=== PATIENT | male | born 1940 | race Caucasian/White ===

== ENCOUNTER 2016-06-20 16:32 | Inpatient (IN) | payer OTHER ==
[~2016-06-20] VITALS: Ht 172.7 cm; Wt 96.5 kg
[~2016-06-20 16:32] MED LIST: ASPIR 8181 M1 PO; BENADRYL25 MG PO; CENTRUM SILVER1 EAC3 PO; COREG6.25 M1 PO; DOK PLUS TABLE1 EACH PO; IRON325 M1 PO; LASIX40 MG PO; NORVASC10 MG PO; OMEGA 3-6-9 CO1 EACH PO; OXYCODONE HCL5 MG PO; PRAVACHOL80 MG PO; VITAMIN B-6100 MG PO; XARELTO10 MG PO; ZYLOPRIM300 MG PO
[2016-06-20 17:19] LABS: HEMATOCRIT 37.3 % (38.0-50.0); MCH 33.7 PG (29.0-34.0); MCHC 33.5 G/DL (30.0-36.0); MCV 100.5 FL (86-99); MEAN PLAT.VOLUME 9.7 uM^3 (9.0-12.4); PLATELET COUNT 162 K/uL (156-360); RBC DIS.WIDTH-CV 13.5 % (11.8-14.6); RED BLOOD COUNT 3.71 M/uL (4.00-5.50); WHITE BLOOD COUNT 7.5 K/uL (4.1-10.2)
[2016-06-20 17:24] LABS: CHLORIDE 94 mEq/L (99-109); POTASSIUM 4.5 mEq/L (3.7-5.4); SODIUM 135 mEq/L (136-147)
[2016-06-20 17:25] LABS: GLUCOSE 102 mg/dL (70-99)
[2016-06-20 17:27] LABS: ANION GAP 16 MEQ/L (2-14)
[2016-06-20 17:29] LABS: GFR ESTIMATE (CALCULATED) 23 mL/min/
[2016-06-20 17:30] LABS: UREA NITROGEN (BUN) 40 mg/dL (9-23)
[2016-06-20] MEDS ORDERED: ZYLOPRIM100 MG PO (18:33)
[2016-06-20] MEDS ORDERED: COLCRYS0.6 MG PO (18:34)
[2016-06-20] MEDS ORDERED: CALCITRIOL0.25 MCG PO (18:35)
[2016-06-20] MEDS ORDERED: LEVOFLOXACIN750 MG PO (18:36)
[2016-06-20] MEDS ORDERED: NORVASC5 MG PO (18:37)
[2016-06-20 19:14] LABS: EOSINOPHIL (%) 0.1 % (0-5); HEMATOLOGY COMMENT 1 SMEAR COMPATIBLE; IMMATURE GRANULOCYTE (%) 1.6 % (0.0-0.7); IMMATURE GRANULOCYTE COUNT 1.2 K/uL; LYMPHOCYTE COUNT 0.9 K/uL (1.0-2.8); MONOCYTE (%) 3.2 % (3-12); MONOCYTE COUNT 0.2 K/uL (0-0.8); NEUTROPHIL (%) 82.5 % (45-76); NEUTROPHIL COUNT 6.2 K/uL (1.8-6.4); USER ID SS
[2016-06-20 19:34] LABS: BASE EXCESS -2.6 mEq/L (-3 to +3); BICARBONATE 23.2 mEq/L (22-26); METHEMOGLOBIN 1.2 % (0-1.5); PCO2 43 mm Hg (35-45); PO2 265 mm Hg (80-100); pH 7.34 (7.35-7.45)
[2016-06-20 19:35] LABS: COMMENTS - BLOOD GASES C+; DEVICE PB840; FI02 100 %; MODE SPON; PEEP 5 CM/H20; PRES. SUPPORT 15 CM/H2O; SITE LR; TOTAL RESP RATE 45 resp/min
[2016-06-20 22:35] VITALS: BP 156/87
[2016-06-20 22:42] VITALS: BP 156/87
[2016-06-20 23:00] VITALS: BP 109/71
[2016-06-20 23:58] LABS: METH RESISTANT S AUREUS PCR NEGATIVE (NEGATIVE); PROBE CHECK PASS; SPECIMEN PROCESSING CONTROL PASS
[2016-06-21] VITALS (21 sets, daily range): BP systolic 94–141; BP diastolic 52–97
[2016-06-21 01:09] LABS: INFLUENZA A VIRAL ANTIGEN NEGATIVE; INFLUENZA B VIRAL ANTIGEN NEGATIVE
[2016-06-21 05:55] LABS: ANION GAP 15 MEQ/L (2-14); CHLORIDE 97 MEQ/L (99-109); GFR ESTIMATE (CALCULATED) 28 mL/min/; GLUCOSE 125 mg/dL (70-99); MAGNESIUM 1.2 mg/dl (1.3-2.7); POTASSIUM 4.3 MEQ/L (3.7-5.4); SAMPLE HEMOLYSIS CHECK 0; SAMPLE ICTERIC CHECK 0; SAMPLE LIPEMIA CHECK 0; SODIUM 136 MEQ/L (136-147); UREA NITROGEN (BUN) 40 mg/dL (9-23); URIC ACID 6.8 mg/dL (3.1-9.2)
[2016-06-21 06:19] LABS: EOSINOPHIL (%) 0 % (0-5); HEMATOCRIT 37.1 % (38.0-50.0); HEMATOLOGY COMMENT 1 REV; IMMATURE GRANULOCYTE (%) 4.5 % (0.0-0.7); IMMATURE GRANULOCYTE COUNT 0.5 K/uL; LYMPHOCYTE COUNT 0.7 K/uL (1.0-2.8); MCH 33.9 PG (29.0-34.0); MCHC 33.4 G/DL (30.0-36.0); MCV 101.4 FL (86-99); MONOCYTE (%) 2.5 % (3-12); MONOCYTE COUNT 0.3 K/uL (0-0.8); NEUTROPHIL (%) 86.9 % (45-76); NEUTROPHIL COUNT 9.6 K/uL (1.8-6.4); PLATELET COUNT 145 K/uL (156-360); RBC DIS.WIDTH-CV 14.1 % (11.8-14.6); RBC DIS.WIDTH-SD 51.9 % (39-53); RED BLOOD COUNT 3.66 M/uL (4.00-5.50); USER ID SLU
[2016-06-21 06:53] LABS: C DIFF TOXIN NEGATIVE (NEGATIVE)
[2016-06-21 06:54] LABS: PROBE CHECK PASS; SPECIMEN PROCESSING CONTROL PASS
[2016-06-21 08:04] LABS: INTERNAL CONTROL VALID? YES
[2016-06-21 16:15] LABS: ANION GAP 13 MEQ/L (2-14); CHLORIDE 96 MEQ/L (99-109); GFR ESTIMATE (CALCULATED) 27 mL/min/; GLUCOSE 118 mg/dL (70-99); POTASSIUM 4.3 MEQ/L (3.7-5.4); SAMPLE HEMOLYSIS CHECK 0; SAMPLE ICTERIC CHECK 0; SAMPLE LIPEMIA CHECK 0; SODIUM 135 MEQ/L (136-147); UREA NITROGEN (BUN) 44 mg/dL (9-23)
[2016-06-21 16:19] LABS: MAGNESIUM 1.9 mg/dl (1.3-2.7)
[2016-06-22] VITALS (19 sets, daily range): BP systolic 91–116; BP diastolic 58–80
[2016-06-22 06:22] LABS: ANION GAP 12 MEQ/L (2-14); CHLORIDE 97 MEQ/L (99-109); GFR ESTIMATE (CALCULATED) 30 mL/min/; GLUCOSE 94 mg/dL (70-99); POTASSIUM 4.5 MEQ/L (3.7-5.4); SAMPLE HEMOLYSIS CHECK 0; SAMPLE ICTERIC CHECK 0; SAMPLE LIPEMIA CHECK 0; SODIUM 135 MEQ/L (136-147); UREA NITROGEN (BUN) 48 mg/dL (9-23)
[2016-06-22 06:24] LABS: MAGNESIUM 2.4 mg/dl (1.3-2.7)
[2016-06-22 06:40] LABS: HEMATOCRIT 32.6 % (38.0-50.0); MCH 32.5 PG (29.0-34.0); MCHC 32.5 G/DL (30.0-36.0); MEAN PLAT.VOLUME 10.9 uM^3 (9.0-12.4); PLATELET COUNT 150 K/uL (156-360); RBC DIS.WIDTH-CV 14.1 % (11.8-14.6); RED BLOOD COUNT 3.26 M/uL (4.00-5.50); WHITE BLOOD COUNT 20.9 K/uL (4.1-10.2)
[2016-06-22 07:11] LABS: EOSINOPHIL (%) 0 % (0-5); IMMATURE GRANULOCYTE (%) 0.3 % (0.0-0.7); IMMATURE GRANULOCYTE COUNT 0.1 K/uL; MONOCYTE COUNT 0.8 K/uL (0-0.8); NEUTROPHIL (%) 90.9 % (45-76)
[2016-06-22 07:54] LABS: HEMATOLOGY COMMENT 1 SMEAR COMPATIBLE; USER ID SDF
[2016-06-23] VITALS (11 sets, daily range): BP systolic 97–128; BP diastolic 56–78
[2016-06-23 10:59] LABS: HEMATOCRIT 29.9 % (38.0-50.0); MCH 32.9 PG (29.0-34.0); MCHC 32.8 G/DL (30.0-36.0); MCV 100.3 FL (86-99); MEAN PLAT.VOLUME 11.2 uM^3 (9.0-12.4); PLATELET COUNT 167 K/uL (156-360); RBC DIS.WIDTH-CV 14.4 % (11.8-14.6); RBC DIS.WIDTH-SD 52.7 % (39-53); RED BLOOD COUNT 2.98 M/uL (4.00-5.50); WHITE BLOOD COUNT 26.1 K/uL (4.1-10.2)
[2016-06-23 12:50] LABS: ANION GAP 13 MEQ/L (2-14); CHLORIDE 98 MEQ/L (99-109); POTASSIUM 4.1 MEQ/L (3.7-5.4); SAMPLE HEMOLYSIS CHECK 0; SAMPLE ICTERIC CHECK 0; SAMPLE LIPEMIA CHECK 0; SODIUM 132 MEQ/L (136-147)
[2016-06-23 12:55] LABS: GFR ESTIMATE (CALCULATED) 33 mL/min/; GLUCOSE 110 mg/dL (70-99); UREA NITROGEN (BUN) 61 mg/dL (9-23)
[2016-06-23 12:59] LABS: TROP-I INTERPRETATION INDETERMINATE; TROPONIN-I 0.36 ng/mL (0.0-0.30)
[2016-06-23 17:10] LABS: PROTHROMBIN TIME 10.1 (9.2-11.2)
[2016-06-24] VITALS (10 sets, daily range): BP systolic 105–151; BP diastolic 57–88
[2016-06-24 06:16] LABS: HEMATOCRIT 32.2 % (38.0-50.0); MCH 33.7 PG (29.0-34.0); MCHC 34.2 G/DL (30.0-36.0); MCV 98.8 FL (86-99); MEAN PLAT.VOLUME 11.5 uM^3 (9.0-12.4); PLATELET COUNT 180 K/uL (156-360); RBC DIS.WIDTH-CV 13.9 % (11.8-14.6); RBC DIS.WIDTH-SD 49.8 % (39-53); RED BLOOD COUNT 3.26 M/uL (4.00-5.50)
[2016-06-24 06:17] LABS: WHITE BLOOD COUNT 16.9 K/uL (4.1-10.2)
[2016-06-24 06:36] LABS: PTT 39.5 (25-32)
[2016-06-24 06:42] LABS: ANION GAP 13 MEQ/L (2-14); CHLORIDE 100 MEQ/L (99-109); GFR ESTIMATE (CALCULATED) 37 mL/min/; GLUCOSE 93 mg/dL (70-99); POTASSIUM 4.4 MEQ/L (3.7-5.4); SAMPLE HEMOLYSIS CHECK 0; SAMPLE ICTERIC CHECK 0; SAMPLE LIPEMIA CHECK 0; SODIUM 135 MEQ/L (136-147); UREA NITROGEN (BUN) 61 mg/dL (9-23)
[2016-06-24 09:55] LABS: TROP-I INTERPRETATION INDETERMINATE; TROPONIN-I 0.31 ng/mL (0.0-0.30)
[2016-06-25] VITALS: BP 135/61
[2016-06-25 03:44] VITALS: BP 135/73
[2016-06-25 06:03] LABS: HEMATOCRIT 35.3 % (38.0-50.0); MCH 33.1 PG (29.0-34.0); MCHC 33.7 G/DL (30.0-36.0); MCV 98.1 FL (86-99); NRBC (%) 0.5 /100 WBC (0-0); RBC DIS.WIDTH-SD 50.1 % (39-53); WHITE BLOOD COUNT 14.5 K/uL (4.1-10.2)
[2016-06-25 06:11] LABS: INTER. NORMALIZED RATIO 1.1; PROTHROMBIN TIME 11.7 (9.2-11.2)
[2016-06-25 06:23] LABS: ANION GAP 11 MEQ/L (2-14); CHLORIDE 99 MEQ/L (99-109); GFR ESTIMATE (CALCULATED) 37 mL/min/; GLUCOSE 122 mg/dL (70-99); POTASSIUM 4.9 MEQ/L (3.7-5.4); SAMPLE HEMOLYSIS CHECK 0; SAMPLE ICTERIC CHECK 0; SAMPLE LIPEMIA CHECK 0; SODIUM 133 MEQ/L (136-147); UREA NITROGEN (BUN) 52 mg/dL (9-23)
[2016-06-25 07:35] VITALS: BP 184/67
[2016-06-25 07:47] LABS: BASOPHIL COUNT 0.1 K/uL (0-0.1); EOSINOPHIL (%) 2.8 % (0-5); EOSINOPHIL COUNT 0.4 K/uL (0-0.3); HEMATOLOGY COMMENT 1 SMEAR COMPATIBLE; IMMATURE GRANULOCYTE (%) 10.3 % (0.0-0.7); IMMATURE GRANULOCYTE COUNT 1.5 K/uL; LYMPHOCYTE COUNT 1.6 K/uL (1.0-2.8); MEAN PLAT.VOLUME 11.2 uM^3 (9.0-12.4); MONOCYTE (%) 8.4 % (3-12); MONOCYTE COUNT 1.2 K/uL (0-0.8); NEUTROPHIL (%) 66.7 % (45-76); NEUTROPHIL COUNT 9.7 K/uL (1.8-6.4); USER ID CL
[2016-06-25 08:16] LABS: PLATELET COUNT 235 K/uL (156-360)
[2016-06-25 11:35] VITALS: BP 101/76
[2016-06-25 16:05] VITALS: BP 116/67
[2016-06-25 20:00] VITALS: BP 148/67
[2016-06-25 22:21] LABS: ADD MIUA? NO; BILIRUBIN NEGATIVE; BLOOD NEGATIVE; COLOR YELLOW ((YELLOW)); GLUCOSE (STRIP) NEGATIVE; KETONES NEGATIVE; LEUKOCYTES NEGATIVE; NITRITE NEGATIVE; PROTEIN (STRIP) 30; SPECIFIC GRAVITY 1.013 (1.000-1.030); UROBILINOGEN 0.2 MG/DL (0.2-1.0)
[2016-06-26] VITALS: BP 123/69
[2016-06-26 04:35] VITALS: BP 135/76
[2016-06-26 06:06] LABS: INTER. NORMALIZED RATIO 1.3; PROTHROMBIN TIME 13.1 (9.2-11.2)
[2016-06-26 08:51] VITALS: BP 123/70
[2016-06-26 09:06] LABS: HEMATOCRIT 32.5 % (38.0-50.0); MCH 33.8 PG (29.0-34.0); MCHC 34.5 G/DL (30.0-36.0); MCV 98.2 FL (86-99); MEAN PLAT.VOLUME 11.3 uM^3 (9.0-12.4); PLATELET COUNT 243 K/uL (156-360); RBC DIS.WIDTH-SD 50.1 % (39-53); RED BLOOD COUNT 3.31 M/uL (4.00-5.50); WHITE BLOOD COUNT 13.2 K/uL (4.1-10.2)
[2016-06-26 09:30] LABS: ANION GAP 10 MEQ/L (2-14); CHLORIDE 103 MEQ/L (99-109); GFR ESTIMATE (CALCULATED) 42 mL/min/; GLUCOSE 120 mg/dL (70-99); POTASSIUM 4.8 MEQ/L (3.7-5.4); SAMPLE HEMOLYSIS CHECK 0; SAMPLE ICTERIC CHECK 0; SAMPLE LIPEMIA CHECK 0; SODIUM 135 MEQ/L (136-147); UREA NITROGEN (BUN) 48 mg/dL (9-23)
[2016-06-26] MEDS ORDERED: PROAIR HFA8.5 GM IH (11:53)
[2016-06-26] MEDS ORDERED: ADVAIR 250/501 DISK IH (11:53)
[2016-06-26] MEDS ORDERED: CEFTRIAXONE2 G1 IV (11:56)
[2016-06-26] MEDS ORDERED: XARELTO15 MG PO (12:06)
[2016-06-26] MEDS ORDERED: BENZONATATE100 MG PO (12:18)
== END 2016-06-26 16:33 | disposition home or self-care (01) | DRG 189 ==
LOC: EME 16:32 → EDOF 21:49 → 4WEST 21:49 → 5SOUTH 06-24 18:11
PROVIDERS: Emergency Medicine; Internal Medicine; Physician Assistant
PROC: 5A0945Z Assistance with Respiratory Ventilation, 24-96 Consecutive Hours (ICD-10-PCS; principal; 2016-06-20)
DX: J96.01 Acute respiratory failure with hypoxia (principal); J44.0 Chronic obstructive pulmonary disease with (acute) lower respiratory infection; J15.4 Pneumonia due to other streptococci; I48.1 Persistent atrial fibrillation; J44.1 Chronic obstructive pulmonary disease with (acute) exacerbation; I25.5 Ischemic cardiomyopathy; I25.10 Atherosclerotic heart disease of native coronary artery without angina pectoris; I25.2 Old myocardial infarction; Z98.61 Coronary angioplasty status; N17.9 Acute kidney failure, unspecified; I12.9 Hypertensive chronic kidney disease with stage 1 through stage 4 chronic kidney disease, or unspecified chronic kidney disease; N18.9 Chronic kidney disease, unspecified; E78.5 Hyperlipidemia, unspecified; R19.7 Diarrhea, unspecified; E83.42 Hypomagnesemia; M10.9 Gout, unspecified; D64.9 Anemia, unspecified; I27.2 Other secondary pulmonary hypertension; E66.9 Obesity, unspecified; Z68.32 Body mass index [BMI] 32.0-32.9, adult; D69.6 Thrombocytopenia, unspecified; Z66 Do not resuscitate; Z96.652 Presence of left artificial knee joint
CPT/HCPCS: 36415; 36600; 71010; 71020; 80048; 80048 91; 80202; 81003; 82803; 83605; 83735; 83880; 84100; 84484; 84550; 85025; 85027; 85610; 85730; 86609 90; 87040; 87070; 87205; 87449; 87493; 87502; 87641; 93005; 94002; 94003; 94640 76; 94644; 94667; 94668; 94760; 94799; 99202; 99281; 99285; J0456; J0696; J1100; J1644; J1940; J1956; J2543; J3370; J3475; J7050; J7120; S0028

== ENCOUNTER 2017-04-02 06:24 | Day surgery (SDC) | payer OTHER ==
[~2017-04-02] VITALS: Ht 172.7 cm; Wt 90.7 kg
[~2017-04-02 06:24] MED LIST changes: +ADVAIR 250/501 DISK IH; +BENZONATATE100 MG PO; +CALCITRIOL0.25 MCG PO; +CEFTRIAXONE2 G1 IV; +COLCRYS0.6 MG PO; +LEVOFLOXACIN750 MG PO; +NORVASC5 MG PO; +PROAIR HFA8.5 GM IH; +XARELTO15 MG PO; +ZYLOPRIM100 MG PO
[2017-04-02 06:56] VITALS: BP 127/83
[2017-04-02] MEDS ORDERED: NORCO 5/3251 TABLET PO (09:32)
[2017-04-02 12:23] VITALS: BP 121/79
[2017-04-02 13:30] VITALS: BP 125/75
[2017-04-02 15:00] VITALS: BP 138/72
== END 2017-04-02 15:09 | disposition home or self-care (01) ==
LOC: SDC 06:24
PROC: 0WUF4JZ Supplement Abdominal Wall with Synthetic Substitute, Percutaneous Endoscopic Approach (ICD-10-PCS; principal; 2017-04-02)
DX: K42.0 Umbilical hernia with obstruction, without gangrene (principal); I11.0 Hypertensive heart disease with heart failure; I50.9 Heart failure, unspecified; I25.10 Atherosclerotic heart disease of native coronary artery without angina pectoris; I48.91 Unspecified atrial fibrillation; R18.8 Other ascites; E78.5 Hyperlipidemia, unspecified; I25.2 Old myocardial infarction; Z87.891 Personal history of nicotine dependence; Z79.01 Long term (current) use of anticoagulants; Z79.82 Long term (current) use of aspirin
CPT/HCPCS: C1781; J0330; J0690; J1100; J2405; J2710; J3010

== ENCOUNTER 2017-06-02 17:29 | Inpatient (IN) | payer OTHER ==
[~2017-06-02] VITALS: Ht 172.7 cm; Wt 82.7 kg
[~2017-06-02 17:29] MED LIST changes: +NORCO 5/3251 TABLET PO; +OMEGA 3-6-9 11200 MG PO; -OMEGA 3-6-9 CO1 EACH PO
[2017-06-02 19:29] LABS: HEMATOCRIT 35.4 % (38.0-50.0); HEMOGLOBIN 11.9 G/DL (12.5-16.6); MCH 35.1 PG (29.0-34.0); MCHC 33.6 G/DL (30.0-36.0); MCV 104.4 FL (86-99); PLATELET COUNT 180 K/uL (156-360); RBC DIS.WIDTH-CV 19.5 % (11.8-14.6); RBC DIS.WIDTH-SD 74.2 % (39-53); RED BLOOD COUNT 3.39 M/uL (4.00-5.50); WHITE BLOOD COUNT 17.3 K/uL (4.1-10.2)
[2017-06-02 19:39] LABS: ALBUMIN 3.3 g/dL (3.2-4.8); CHLORIDE 100 mEq/L (99-109); POTASSIUM 4.6 mEq/L (3.7-5.4); SODIUM 139 mEq/L (136-147)
[2017-06-02 19:42] LABS: GLUCOSE 114 mg/dL (70-99)
[2017-06-02 19:44] LABS: TOTAL BILIRUBIN 2.9 mg/dL (0.0-1.0)
[2017-06-02 19:45] LABS: ALKALINE PHOSPHATASE 276 IU/L (3-129); CREATININE 1.7 mg/dL (0.6-1.3); GFR ESTIMATE (CALCULATED) 42 mL/min/ (58.99-99999)
[2017-06-02 19:46] LABS: UREA NITROGEN (BUN) 29 mg/dL (9-23)
[2017-06-02 19:47] LABS: AST (GOT) 32 IU/L (2-34)
[2017-06-02 19:48] LABS: ALT (GPT) 15 IU/L (3-49)
[2017-06-02 19:51] LABS: TROP-I INTERPRETATION NEGATIVE; TROPONIN-I 0.06 ng/mL (0.0-0.30)
[2017-06-02] MEDS ORDERED: CARVEDILOL12.5 MG PO (21:44)
[2017-06-02] MEDS ORDERED: OMEPRAZOLE40 M1 PO (21:46)
[2017-06-02] MEDS ORDERED: FUROSEMIDE40 MG PO (21:48)
[2017-06-02] MEDS ORDERED: ALLOPURINOL100 MG PO (21:49)
[2017-06-02] MEDS ORDERED: PRAVASTATIN SOD80 MG PO (21:50)
[2017-06-03 01:04] VITALS: BP 122/84
[2017-06-03 04:33] VITALS: BP 84/56
[2017-06-03 06:25] LABS: HEMOGLOBIN 10.8 G/DL (12.5-16.6); MCH 35.2 PG (29.0-34.0); MCHC 33.8 G/DL (30.0-36.0); MCV 104.2 FL (86-99); PLATELET COUNT 151 K/uL (156-360); RBC DIS.WIDTH-CV 19.1 % (11.8-14.6); RED BLOOD COUNT 3.07 M/uL (4.00-5.50); WHITE BLOOD COUNT 16.8 K/uL (4.1-10.2)
[2017-06-03 06:43] LABS: TROP-I INTERPRETATION NEGATIVE; TROPONIN-I 0.15 ng/mL (0.0-0.30)
[2017-06-03 06:56] LABS: ALBUMIN 3.1 G/DL (3.2-4.8); ALKALINE PHOSPHATASE 207 IU/L (3-129); ALT (GPT) 11 IU/L (3-49); AST (GOT) 27 IU/L (2-34); CHLORIDE 98 MEQ/L (99-109); CREATININE 1.8 MG/DL (0.6-1.3); DIRECT BILIRUBIN 1.3 mg/dL (0.0-0.3); GFR ESTIMATE (CALCULATED) 39 mL/min/ (58.99-99999); GLUCOSE 104 mg/dL (70-99); PREALBUMIN 12.9 mg/dL (10-40); SODIUM 138 MEQ/L (136-147); TOTAL BILIRUBIN 3.1 MG/DL (0.0-1.0); TOTAL PROTEIN 5.7 G/DL (6.4-8.3); UREA NITROGEN (BUN) 30 mg/dL (9-23)
[2017-06-03 07:48] VITALS: BP 90/52
[2017-06-03 12:19] VITALS: BP 103/51
[2017-06-03 12:29] LABS: TROP-I INTERPRETATION NEGATIVE; TROPONIN-I 0.16 ng/mL (0.0-0.30)
[2017-06-03 16:13] VITALS: BP 109/60
[2017-06-04] VITALS (7 sets, daily range): BP systolic 65–158; BP diastolic 50–106
[2017-06-04 06:06] LABS: HEMATOCRIT 29.2 % (38.0-50.0); HEMOGLOBIN 9.8 G/DL (12.5-16.6); MCH 35.3 PG (29.0-34.0); MCHC 33.6 G/DL (30.0-36.0); PLATELET COUNT 136 K/uL (156-360); RBC DIS.WIDTH-CV 18.9 % (11.8-14.6); RBC DIS.WIDTH-SD 73.7 % (39-53); RED BLOOD COUNT 2.78 M/uL (4.00-5.50); WHITE BLOOD COUNT 16.7 K/uL (4.1-10.2)
[2017-06-04 06:16] LABS: INTER. NORMALIZED RATIO 2.7
[2017-06-04 06:19] LABS: PTT 41.5 SEC (25-37)
[2017-06-04 06:35] LABS: ALBUMIN 2.8 G/DL (3.2-4.8); ALKALINE PHOSPHATASE 190 IU/L (3-129); ALT (GPT) 10 IU/L (3-49); AST (GOT) 24 IU/L (2-34); CHLORIDE 99 MEQ/L (99-109); GFR ESTIMATE (CALCULATED) 27 mL/min/ (58.99-99999); POTASSIUM 3.9 MEQ/L (3.7-5.4); SODIUM 139 MEQ/L (136-147); TOTAL BILIRUBIN 2.7 MG/DL (0.0-1.0); TOTAL PROTEIN 5.7 G/DL (6.4-8.3); UREA NITROGEN (BUN) 45 mg/dL (9-23)
[2017-06-04 06:37] LABS: CREATININE 2.5 MG/DL (0.6-1.3); GLUCOSE 162 mg/dL (70-99)
[2017-06-04 13:41] LABS: HEPATITIS B SURFACE ANTIGEN Nonreactive
[2017-06-04 13:42] LABS: HEPATITIS C ANTIBODY Nonreactive
[2017-06-04 13:43] LABS: ANTI-HEPATITIS A VIRUS (IGM) Nonreactive; ANTI-HEPATITIS B CORE (IGM) Nonreactive
[2017-06-04 21:24] LABS: APPEARANCE CLEAR ((CLEAR)); BILIRUBIN NEGATIVE; BLOOD SMALL; COLOR YELLOW ((YELLOW)); GLUCOSE (STRIP) NEGATIVE; KETONES NEGATIVE; LEUKOCYTES NEGATIVE; NITRITE NEGATIVE; PROTEIN (STRIP) 30; SPECIFIC GRAVITY 1.012 (1.000-1.030)
[2017-06-04 21:39] LABS: BACTERIA RARE /HPF; EPITHELIAL CELLS RARE /HPF; MUCUS TRACE /LPF; RED BLOOD CELLS 0-5 /HPF (0-5); WHITE BLOOD CELLS 0-5 /HPF (0-5)
[2017-06-05] VITALS (7 sets, daily range): BP systolic 79–105; BP diastolic 54–65
[2017-06-05 06:40] LABS: HEMATOCRIT 31.4 % (38.0-50.0); HEMOGLOBIN 10.3 G/DL (12.5-16.6); MCH 34.3 PG (29.0-34.0); MCHC 32.8 G/DL (30.0-36.0); MCV 104.7 FL (86-99); PLATELET COUNT 126 K/uL (156-360); RBC DIS.WIDTH-CV 18.6 % (11.8-14.6); RBC DIS.WIDTH-SD 70.4 % (39-53); WHITE BLOOD COUNT 15.1 K/uL (4.1-10.2)
[2017-06-05 07:07] LABS: ALBUMIN 2.8 G/DL (3.2-4.8); CHLORIDE 99 MEQ/L (99-109); CREATININE 2.7 MG/DL (0.6-1.3); GFR ESTIMATE (CALCULATED) 25 mL/min/ (58.99-99999); SODIUM 138 MEQ/L (136-147); UREA NITROGEN (BUN) 51 mg/dL (9-23)
[2017-06-05 07:08] LABS: GLUCOSE 93 mg/dL (70-99)
[2017-06-05 10:13] LABS: TOTAL PROTEIN 5.9 G/DL (6.4-8.3)
[2017-06-05 10:15] LABS: ALKALINE PHOSPHATASE 303 IU/L (3-129); ALT (GPT) 47 IU/L (3-49); AST (GOT) 139 IU/L (2-34); TOTAL BILIRUBIN 3.7 MG/DL (0.0-1.0)
[2017-06-06] VITALS (7 sets, daily range): BP systolic 95–118; BP diastolic 55–78
[2017-06-06 07:02] LABS: ALBUMIN 2.8 G/DL (3.2-4.8); CHLORIDE 97 MEQ/L (99-109); CREATININE 2.6 MG/DL (0.6-1.3); GFR ESTIMATE (CALCULATED) 26 mL/min/ (58.99-99999); GLUCOSE 116 mg/dL (70-99); POTASSIUM 3.6 MEQ/L (3.7-5.4); SODIUM 134 MEQ/L (136-147); UREA NITROGEN (BUN) 48 mg/dL (9-23)
[2017-06-06 07:11] LABS: HEMATOCRIT 30.6 % (38.0-50.0); HEMOGLOBIN 10.6 G/DL (12.5-16.6); MCH 35.1 PG (29.0-34.0); MCHC 34.6 G/DL (30.0-36.0); MCV 101.3 FL (86-99); PLATELET COUNT 120 K/uL (156-360); RBC DIS.WIDTH-CV 18.1 % (11.8-14.6); RBC DIS.WIDTH-SD 66.5 % (39-53); RED BLOOD COUNT 3.02 M/uL (4.00-5.50); WHITE BLOOD COUNT 12.8 K/uL (4.1-10.2)
[2017-06-06 08:57] LABS: ALT (GPT) 46 IU/L (3-49); AST (GOT) 136 IU/L (2-34); DIRECT BILIRUBIN 1.9 mg/dL (0.0-0.3); TOTAL BILIRUBIN 3.5 MG/DL (0.0-1.0); TOTAL PROTEIN 5.7 G/DL (6.4-8.3)
[2017-06-06 09:16] LABS: ALKALINE PHOSPHATASE 427 IU/L (3-129)
[2017-06-07 03:30] VITALS: BP 96/58
[2017-06-07 06:25] LABS: HEMATOCRIT 31.8 % (38.0-50.0); HEMOGLOBIN 10.8 G/DL (12.5-16.6); MCH 34.2 PG (29.0-34.0); MCV 100.6 FL (86-99); PLATELET COUNT 129 K/uL (156-360); RBC DIS.WIDTH-CV 17.8 % (11.8-14.6); RED BLOOD COUNT 3.16 M/uL (4.00-5.50); WHITE BLOOD COUNT 12.3 K/uL (4.1-10.2)
[2017-06-07 06:57] LABS: CHLORIDE 96 MEQ/L (99-109); CREATININE 2.3 MG/DL (0.6-1.3); GFR ESTIMATE (CALCULATED) 30 mL/min/ (58.99-99999); GLUCOSE 129 mg/dL (70-99); PHOSPHORUS 2.8 mg/dL (2.5-4.9); POTASSIUM 3.7 MEQ/L (3.7-5.4); SODIUM 136 MEQ/L (136-147); UREA NITROGEN (BUN) 45 mg/dL (9-23)
[2017-06-07 07:34] VITALS: BP 92/59
[2017-06-07 12:41] VITALS: BP 98/62
[2017-06-07 17:01] VITALS: BP 99/62
[2017-06-07 20:38] VITALS: BP 108/65
[2017-06-08] VITALS (7 sets, daily range): BP systolic 89–124; BP diastolic 58–67
[2017-06-08 06:58] LABS: CHLORIDE 92 MEQ/L (99-109); GFR ESTIMATE (CALCULATED) 35 mL/min/ (58.99-99999); GLUCOSE 111 mg/dL (70-99); MAGNESIUM 1.9 mg/dl (1.3-2.7); POTASSIUM 3.3 MEQ/L (3.7-5.4); SODIUM 133 MEQ/L (136-147); UREA NITROGEN (BUN) 43 mg/dL (9-23)
[2017-06-09 00:23] VITALS: BP 93/61
[2017-06-09 03:58] VITALS: BP 90/56
[2017-06-09 06:44] LABS: HEMOGLOBIN 9.9 G/DL (12.5-16.6); MCH 33.7 PG (29.0-34.0); MCHC 34.1 G/DL (30.0-36.0); MCV 98.6 FL (86-99); RBC DIS.WIDTH-CV 17.1 % (11.8-14.6); RBC DIS.WIDTH-SD 62.2 % (39-53); RED BLOOD COUNT 2.94 M/uL (4.00-5.50); WHITE BLOOD COUNT 9.1 K/uL (4.1-10.2)
[2017-06-09 06:46] LABS: PLATELET COUNT 173 K/uL (156-360)
[2017-06-09 07:13] LABS: ALBUMIN 2.8 G/DL (3.2-4.8); ALT (GPT) 35 IU/L (3-49); CHLORIDE 96 MEQ/L (99-109); CREATININE 1.9 MG/DL (0.6-1.3); DIRECT BILIRUBIN 2.2 mg/dL (0.0-0.3); GFR ESTIMATE (CALCULATED) 37 mL/min/ (58.99-99999); GLUCOSE 101 mg/dL (70-99); SODIUM 136 MEQ/L (136-147); TOTAL BILIRUBIN 3.6 MG/DL (0.0-1.0); TOTAL PROTEIN 6.3 G/DL (6.4-8.3); UREA NITROGEN (BUN) 41 mg/dL (9-23)
[2017-06-09 07:15] LABS: ALKALINE PHOSPHATASE 602 IU/L (3-129); AST (GOT) 204 IU/L (2-34); POTASSIUM 4.1 MEQ/L (3.7-5.4)
[2017-06-09 07:58] VITALS: BP 119/65
[2017-06-09 16:00] VITALS: BP 126/64
[2017-06-09 19:47] VITALS: BP 105/57
[2017-06-10 00:21] VITALS: BP 120/82
[2017-06-10 03:33] VITALS: BP 113/58
[2017-06-10 06:54] LABS: HEMATOCRIT 29.4 % (38.0-50.0); HEMOGLOBIN 10.1 G/DL (12.5-16.6); MCH 33.8 PG (29.0-34.0); MCHC 34.4 G/DL (30.0-36.0); MCV 98.3 FL (86-99); PLATELET COUNT 193 K/uL (156-360); RBC DIS.WIDTH-CV 17.2 % (11.8-14.6); RBC DIS.WIDTH-SD 61.5 % (39-53); RED BLOOD COUNT 2.99 M/uL (4.00-5.50); WHITE BLOOD COUNT 9.6 K/uL (4.1-10.2)
[2017-06-10 07:14] LABS: ALBUMIN 2.8 G/DL (3.2-4.8); ALKALINE PHOSPHATASE 652 IU/L (3-129); ALT (GPT) 28 IU/L (3-49); AST (GOT) 140 IU/L (2-34); CHLORIDE 94 MEQ/L (99-109); CREATININE 1.8 MG/DL (0.6-1.3); GFR ESTIMATE (CALCULATED) 39 mL/min/ (58.99-99999); GLUCOSE 103 mg/dL (70-99); SODIUM 136 MEQ/L (136-147); TOTAL BILIRUBIN 3.8 MG/DL (0.0-1.0); TOTAL PROTEIN 6.3 G/DL (6.4-8.3); UREA NITROGEN (BUN) 38 mg/dL (9-23)
[2017-06-10 07:26] LABS: ABS NEUTROPHIL COUNT 7.6; ATYPICAL LYMPHOCYTE 0.9 %; EOSINOPHIL ABS CT 0.2; EOSINOPHILS 1.8 % (0-5.0); LYMPHOCYTES 11.6 % (15.0-45.0); MONOCYTES 6.2 % (0-9.0); SEG.NEUTROPHILS 79.5 % (46.0-76.0); SMUDGE CELLS 9.8
[2017-06-10 07:35] VITALS: BP 109/68
[2017-06-10 11:31] VITALS: BP 106/67
[2017-06-10 15:40] VITALS: BP 104/68
[2017-06-10 19:05] VITALS: BP 105/60
[2017-06-11] VITALS (7 sets, daily range): BP systolic 84–115; BP diastolic 46–80
[2017-06-11 07:41] LABS: HEMATOCRIT 31.1 % (38.0-50.0); HEMOGLOBIN 10.7 G/DL (12.5-16.6); MCH 34.4 PG (29.0-34.0); MCHC 34.4 G/DL (30.0-36.0); PLATELET COUNT 232 K/uL (156-360); RBC DIS.WIDTH-CV 17.4 % (11.8-14.6); RBC DIS.WIDTH-SD 63.3 % (39-53); RED BLOOD COUNT 3.11 M/uL (4.00-5.50); WHITE BLOOD COUNT 10.4 K/uL (4.1-10.2)
[2017-06-11 08:02] LABS: CHLORIDE 93 MEQ/L (99-109); CREATININE 1.7 MG/DL (0.6-1.3); GFR ESTIMATE (CALCULATED) 42 mL/min/ (58.99-99999); GLUCOSE 92 mg/dL (70-99); MAGNESIUM 2.1 mg/dl (1.3-2.7); POTASSIUM 4.5 MEQ/L (3.7-5.4); SODIUM 133 MEQ/L (136-147); UREA NITROGEN (BUN) 41 mg/dL (9-23)
[2017-06-11 08:06] LABS: ABS NEUTROPHIL COUNT 8.7; BASOPHILS 0.9 %; EOSINOPHIL ABS CT 0.4; EOSINOPHILS 3.7 % (0-5.0); LYMPHOCYTES 9.3 % (15.0-45.0); MONOCYTES 2.8 % (0-9.0); SEG.NEUTROPHILS 83.3 % (46.0-76.0); SMUDGE CELLS 5.6
[2017-06-11 10:01] LABS: ALBUMIN 3.2 G/DL (3.2-4.8); DIRECT BILIRUBIN 1.6 mg/dL (0.0-0.3); TOTAL BILIRUBIN 3.6 MG/DL (0.0-1.0)
[2017-06-11 10:06] LABS: ALKALINE PHOSPHATASE 739 IU/L (3-129); ALT (GPT) 28 IU/L (3-49); AST (GOT) 119 IU/L (2-34); TOTAL PROTEIN 7.1 G/DL (6.4-8.3)
[2017-06-11 10:30] LABS: INTER. NORMALIZED RATIO 2.5
[2017-06-12 06:06] LABS: HEMATOCRIT 31.5 % (38.0-50.0); HEMOGLOBIN 11.2 G/DL (12.5-16.6); MCH 34.9 PG (29.0-34.0); MCHC 35.6 G/DL (30.0-36.0); MCV 98.1 FL (86-99); PLATELET COUNT 256 K/uL (156-360); RBC DIS.WIDTH-CV 17.1 % (11.8-14.6); RBC DIS.WIDTH-SD 60.6 % (39-53); RED BLOOD COUNT 3.21 M/uL (4.00-5.50); WHITE BLOOD COUNT 10.3 K/uL (4.1-10.2)
[2017-06-12 06:26] LABS: CHLORIDE 93 MEQ/L (99-109); CREATININE 1.9 MG/DL (0.6-1.3); GFR ESTIMATE (CALCULATED) 37 mL/min/ (58.99-99999); GLUCOSE 105 mg/dL (70-99); POTASSIUM 4.6 MEQ/L (3.7-5.4); SODIUM 133 MEQ/L (136-147); UREA NITROGEN (BUN) 39 mg/dL (9-23)
[2017-06-12 06:32] LABS: BASOPHIL (%) 0.6 % (0-1); BASOPHIL COUNT 0.1 K/uL (0-0.1); EOSINOPHIL COUNT 0.3 K/uL (0-0.3); IMMATURE GRANULOCYTE (%) 1.3 % (0.0-0.7); LYMPHOCYTE (%) 14.7 % (15-42); LYMPHOCYTE COUNT 1.5 K/uL (1.0-2.8); MONOCYTE COUNT 0.6 K/uL (0-0.8); NEUTROPHIL (%) 74.4 % (45-76); NEUTROPHIL COUNT 7.7 K/uL (1.8-6.4)
[2017-06-12 07:32] VITALS: BP 119/64
[2017-06-12 09:30] LABS: ALKALINE PHOSPHATASE 654 IU/L (3-129); ALT (GPT) 34 IU/L (3-49); AST (GOT) 112 IU/L (2-34); DIRECT BILIRUBIN 1.5 mg/dL (0.0-0.3); TOTAL BILIRUBIN 3.4 MG/DL (0.0-1.0)
[2017-06-12 16:07] VITALS: BP 91/58
[2017-06-12 21:00] VITALS: BP 98/78
[2017-06-13 00:11] VITALS: BP 99/62
[2017-06-13 05:26] LABS: BASOPHIL (%) 0.9 % (0-1); BASOPHIL COUNT 0.1 K/uL (0-0.1); EOSINOPHIL (%) 3.1 % (0-5); EOSINOPHIL COUNT 0.3 K/uL (0-0.3); LYMPHOCYTE (%) 13.5 % (15-42); LYMPHOCYTE COUNT 1.3 K/uL (1.0-2.8); MCH 33.4 PG (29.0-34.0); MCHC 33.3 G/DL (30.0-36.0); MCV 100.3 FL (86-99); MONOCYTE COUNT 0.7 K/uL (0-0.8); NEUTROPHIL (%) 74.5 % (45-76); NEUTROPHIL COUNT 7.3 K/uL (1.8-6.4); PLATELET COUNT 301 K/uL (156-360); RBC DIS.WIDTH-CV 17.2 % (11.8-14.6); RBC DIS.WIDTH-SD 63.7 % (39-53); RED BLOOD COUNT 3.59 M/uL (4.00-5.50); WHITE BLOOD COUNT 9.8 K/uL (4.1-10.2)
[2017-06-13 06:08] LABS: CHLORIDE 90 MEQ/L (99-109); CREATININE 1.9 MG/DL (0.6-1.3); GFR ESTIMATE (CALCULATED) 37 mL/min/ (58.99-99999); GLUCOSE 95 mg/dL (70-99); POTASSIUM 4.9 MEQ/L (3.7-5.4); SODIUM 133 MEQ/L (136-147); UREA NITROGEN (BUN) 38 mg/dL (9-23)
[2017-06-13 08:56] VITALS: BP 99/64
[2017-06-13 15:59] VITALS: BP 124/68
[2017-06-14 00:05] VITALS: BP 99/67
[2017-06-14 06:56] LABS: BASOPHIL (%) 0.8 % (0-1); BASOPHIL COUNT 0.1 K/uL (0-0.1); EOSINOPHIL (%) 2.8 % (0-5); EOSINOPHIL COUNT 0.3 K/uL (0-0.3); HEMOGLOBIN 13.1 G/DL (12.5-16.6); IMMATURE GRANULOCYTE (%) 1.5 % (0.0-0.7); LYMPHOCYTE (%) 11.7 % (15-42); LYMPHOCYTE COUNT 1.2 K/uL (1.0-2.8); MCH 35.3 PG (29.0-34.0); MCHC 35.4 G/DL (30.0-36.0); MCV 99.7 FL (86-99); NEUTROPHIL (%) 73.2 % (45-76); NEUTROPHIL COUNT 7.2 K/uL (1.8-6.4); PLATELET COUNT 331 K/uL (156-360); RBC DIS.WIDTH-CV 17.1 % (11.8-14.6); RBC DIS.WIDTH-SD 61.5 % (39-53); RED BLOOD COUNT 3.71 M/uL (4.00-5.50); WHITE BLOOD COUNT 9.9 K/uL (4.1-10.2)
[2017-06-14 07:00] LABS: CHLORIDE 90 MEQ/L (99-109); CREATININE 2.3 MG/DL (0.6-1.3); GFR ESTIMATE (CALCULATED) 30 mL/min/ (58.99-99999); GLUCOSE 96 mg/dL (70-99); POTASSIUM 4.8 MEQ/L (3.7-5.4); SODIUM 132 MEQ/L (136-147); UREA NITROGEN (BUN) 45 mg/dL (9-23)
[2017-06-14 07:40] VITALS: BP 95/65
[2017-06-14 15:40] VITALS: BP 99/59
[2017-06-14 20:58] VITALS: BP 118/64
[2017-06-14 23:29] VITALS: BP 87/63
[2017-06-15 06:41] LABS: BASOPHIL (%) 0.7 % (0-1); BASOPHIL COUNT 0.1 K/uL (0-0.1); EOSINOPHIL (%) 1.9 % (0-5); EOSINOPHIL COUNT 0.2 K/uL (0-0.3); HEMATOCRIT 38.4 % (38.0-50.0); IMMATURE GRANULOCYTE (%) 0.9 % (0.0-0.7); LYMPHOCYTE (%) 15.2 % (15-42); LYMPHOCYTE COUNT 1.2 K/uL (1.0-2.8); MCH 34.3 PG (29.0-34.0); MCHC 33.9 G/DL (30.0-36.0); MCV 101.3 FL (86-99); MONOCYTE (%) 11.9 % (3-12); NEUTROPHIL (%) 69.4 % (45-76); NEUTROPHIL COUNT 5.6 K/uL (1.8-6.4); PLATELET COUNT 347 K/uL (156-360); RBC DIS.WIDTH-CV 17.1 % (11.8-14.6); RBC DIS.WIDTH-SD 63.3 % (39-53); RED BLOOD COUNT 3.79 M/uL (4.00-5.50)
[2017-06-15 07:06] LABS: CHLORIDE 92 MEQ/L (99-109); CREATININE 2.6 MG/DL (0.6-1.3); GFR ESTIMATE (CALCULATED) 26 mL/min/ (58.99-99999); GLUCOSE 96 mg/dL (70-99); POTASSIUM 5.1 MEQ/L (3.7-5.4); SODIUM 133 MEQ/L (136-147); UREA NITROGEN (BUN) 52 mg/dL (9-23)
[2017-06-15 08:02] VITALS: BP 95/55
[2017-06-15 16:00] VITALS: BP 87/47
[2017-06-15 19:55] VITALS: BP 74/50
[2017-06-15 20:15] VITALS: BP 81/53
[2017-06-15 23:14] VITALS: BP 81/52
[2017-06-16 07:08] LABS: BASOPHIL (%) 0.9 % (0-1); BASOPHIL COUNT 0.1 K/uL (0-0.1); EOSINOPHIL (%) 5.1 % (0-5); EOSINOPHIL COUNT 0.3 K/uL (0-0.3); HEMATOCRIT 36.6 % (38.0-50.0); HEMOGLOBIN 12.6 G/DL (12.5-16.6); IMMATURE GRANULOCYTE (%) 0.8 % (0.0-0.7); LYMPHOCYTE (%) 23.2 % (15-42); LYMPHOCYTE COUNT 1.5 K/uL (1.0-2.8); MCH 34.4 PG (29.0-34.0); MCHC 34.4 G/DL (30.0-36.0); MONOCYTE (%) 12.7 % (3-12); MONOCYTE COUNT 0.8 K/uL (0-0.8); NEUTROPHIL (%) 57.3 % (45-76); NEUTROPHIL COUNT 3.7 K/uL (1.8-6.4); PLATELET COUNT 319 K/uL (156-360); RBC DIS.WIDTH-CV 16.8 % (11.8-14.6); RBC DIS.WIDTH-SD 61.7 % (39-53); RED BLOOD COUNT 3.66 M/uL (4.00-5.50); WHITE BLOOD COUNT 6.5 K/uL (4.1-10.2)
[2017-06-16 07:33] VITALS: BP 107/58
[2017-06-16 09:11] LABS: CHLORIDE 95 mEq/L (99-109); POTASSIUM 4.6 mEq/L (3.7-5.4); SODIUM 131 mEq/L (136-147)
[2017-06-16 09:13] LABS: GLUCOSE 111 mg/dL (70-99)
[2017-06-16 09:17] LABS: GFR ESTIMATE (CALCULATED) 20 mL/min/ (58.99-99999)
[2017-06-16 09:18] LABS: UREA NITROGEN (BUN) 71 mg/dL (9-23)
[2017-06-16 09:19] LABS: CREATININE 3.3 mg/dL (0.6-1.3)
[2017-06-16] MEDS ORDERED: BUMETANIDE1 MG PO (10:29)
[2017-06-16] MEDS ORDERED: BACITRACIN28.4 GM TP (10:29)
[2017-06-16] MEDS ORDERED: SPIRONOLACTONE25 MG PO (10:29)
[2017-06-16] MEDS ORDERED: CARVEDILOL3.125 MG PO (10:29)
[2017-06-16 16:04] VITALS: BP 84/59
[2017-06-17 00:20] VITALS: BP 96/58
[2017-06-17 07:19] LABS: ALBUMIN 3.2 G/DL (3.2-4.8); CHLORIDE 93 MEQ/L (99-109); GLUCOSE 94 mg/dL (70-99); POTASSIUM 4.8 MEQ/L (3.7-5.4); SODIUM 128 MEQ/L (136-147); UREA NITROGEN (BUN) 68 mg/dL (9-23)
[2017-06-17 07:24] LABS: CREATININE 2.5 MG/DL (0.6-1.3); GFR ESTIMATE (CALCULATED) 27 mL/min/ (58.99-99999)
[2017-06-17 08:08] VITALS: BP 128/64
[2017-06-17] MEDS ORDERED: BUMETANIDE1 MG PO (13:08)
== END 2017-06-17 15:26 | disposition home health service (06) | DRG 291 ==
LOC: EME 17:29 → 5SOUTH 21:07 → EDOF 21:07 → ENRESERV 21:09 → 5SOUTH 06-03 00:12 → ENPENDDIS 06-17 → 5SOUTH 06-17 15:26
PROVIDERS: Hospitalist; Internal Medicine; Physician Assistant
DX: I50.23 Acute on chronic systolic (congestive) heart failure (principal); J96.01 Acute respiratory failure with hypoxia; N17.9 Acute kidney failure, unspecified; L03.115 Cellulitis of right lower limb; I95.2 Hypotension due to drugs; I13.0 Hypertensive heart and chronic kidney disease with heart failure and stage 1 through stage 4 chronic kidney disease, or unspecified chronic kidney disease; I25.5 Ischemic cardiomyopathy; L03.116 Cellulitis of left lower limb; R18.8 Other ascites; I25.10 Atherosclerotic heart disease of native coronary artery without angina pectoris; I48.0 Paroxysmal atrial fibrillation; N18.3 Chronic kidney disease, stage 3 (moderate); E87.6 Hypokalemia; D64.9 Anemia, unspecified; E78.5 Hyperlipidemia, unspecified; L97.919 Non-pressure chronic ulcer of unspecified part of right lower leg with unspecified severity; L97.929 Non-pressure chronic ulcer of unspecified part of left lower leg with unspecified severity; E66.01 Morbid (severe) obesity due to excess calories; M10.9 Gout, unspecified; K76.1 Chronic passive congestion of liver; N25.81 Secondary hyperparathyroidism of renal origin; I49.3 Ventricular premature depolarization; E87.2 Acidosis; I87.2 Venous insufficiency (chronic) (peripheral); E87.1 Hypo-osmolality and hyponatremia; R16.0 Hepatomegaly, not elsewhere classified; E87.5 Hyperkalemia; R79.1 Abnormal coagulation profile; J90 Pleural effusion, not elsewhere classified; B95.61 Methicillin susceptible Staphylococcus aureus infection as the cause of diseases classified elsewhere; R79.89 Other specified abnormal findings of blood chemistry; M17.11 Unilateral primary osteoarthritis, right knee; Z95.5 Presence of coronary angioplasty implant and graft; Z96.652 Presence of left artificial knee joint; I25.2 Old myocardial infarction; Z80.1 Family history of malignant neoplasm of trachea, bronchus and lung; N50.89 Other specified disorders of the male genital organs; Z68.33 Body mass index [BMI] 33.0-33.9, adult; Z95.1 Presence of aortocoronary bypass graft; Z87.891 Personal history of nicotine dependence; Z83.3 Family history of diabetes mellitus; Z82.49 Family history of ischemic heart disease and other diseases of the circulatory system; Z80.8 Family history of malignant neoplasm of other organs or systems; Z79.899 Other long term (current) drug therapy; Z75.1 Person awaiting admission to adequate facility elsewhere
CPT/HCPCS: 71020; 71250; 73560; 74176; 76705; 80048; 80053; 80069; 80074; 80076; 81003; 82570; 82945; 82948; 83605; 83615 91; 83735; 83880; 83986 90; 84134; 84156; 84157; 84300; 84484; 84540; 85025; 85027; 85610; 85730; 87040; 87070; 87075; 87077; 87147; 87186; 87205; 89051; 93005; 93306; 94799; 97530 GO; 97530 GP; 99281; 99285; A6260; J0690; J1940; J2543; J7040; J7050